=== PATIENT | female | born 1950 | race Caucasian/White ===

== ENCOUNTER 2020-05-15 06:51 | Day surgery (SDC) | payer MEDICARE, OTHER ==
[~2020-05-15] VITALS: Ht 157.5 cm; Wt 121.0 kg
[2020-05-15] VITALS (8 sets, daily range): BP systolic 169–197; BP diastolic 72–99; PULSE 52–66; TEMP 98.4
[2020-05-15] MEDS ORDERED: NORVASC 5MG5 MG/TAB PO (07:10)
[2020-05-15] MEDS ORDERED: DULCOLAX TAB5 MG PO (07:10)
[2020-05-15] MEDS ORDERED: ZYLOPRIM 100MG100 MG PO (07:10)
[2020-05-15] MEDS ORDERED: KLONOPIN 0.5MG0.5 MG PO (07:11)
[2020-05-15] MEDS ORDERED: NEURONTIN300 MG/CAP PO (07:12)
[2020-05-15] MEDS ORDERED: PROZAC 20MG20 MG PO (07:12)
[2020-05-15] MEDS ORDERED: GLUCOTROL10 MG PO (07:12)
[2020-05-15] MEDS ORDERED: GLUCOPHAGE500 MG/TAB PO (07:13)
[2020-05-15] MEDS ORDERED: HCTZ 25MG TAB25 MG PO (07:13)
[2020-05-15] MEDS ORDERED: TOPROL XL100 MG PO (07:14)
[2020-05-15] MEDS ORDERED: UNIVASC15 MG PO (07:14)
[2020-05-15] MEDS ORDERED: PRILOSEC 20MG20 MG PO (07:15)
[2020-05-15 07:48] LABS: HEMOGLOBIN 10.7 g/dl (12.5-16.0); MEAN CELL VOLUME 97 fl (80.0-100.0); MEAN CORPUSCULAR HEMOGLOBIN 30 pg (27.0-31.0); MEAN CORPUSCULAR HGB CONC 31 g/dl (33.0-37.0); MEAN PLATELET VOLUME 11.5 fl (7.4-10.4); PLATELET COUNT 71 K/mm3 (130-400); RED BLOOD COUNT 3.53 M/mm3 (4.10-5.30); REDCELL DISTRIBUTION WIDTH-CV 14.8 % (11.5-14.5)
[2020-05-15 07:54] LABS: HEMATOCRIT 34.3 % (37.0-47.0)
--- NOTE | 2020-05-15 09:30 | NUR ---
Report from Rachael DHILLON. Transferred from bone biopsy by cart. Dressing to left iliac CD&I.
[2020-05-15 09:36] LABS: EOSINOPHIL 4 % (0-4); LYMPHOCYTE 15 % (20.0-51.0); NEUTROPHILS 71 % (42.0-75.2); NUCLEATED RED BLOOD CELL 1 (0-6)
[2020-05-15 09:38] LABS: PLATELET ESTIMATE DECREASED (NORMAL)
[2020-05-15 09:39] LABS: HYPOCHROMIA 1+
--- NOTE | 2020-05-15 11:23 | NUR ---
INT discontinued intact. Discharge instructions given.
--- NOTE | 2020-05-15 11:35 | NUR ---
Transferred to private car by norbert
== END 2020-05-15 11:40 | disposition home or self-care (01) ==
LOC: SDCO 06:51
PROVIDERS: Internal Medicine
DX: D61.818 Other pancytopenia (principal); D50.9 Iron deficiency anemia, unspecified; D69.6 Thrombocytopenia, unspecified; D75.89 Other specified diseases of blood and blood-forming organs; R16.1 Splenomegaly, not elsewhere classified; D35.02 Benign neoplasm of left adrenal gland; C53.9 Malignant neoplasm of cervix uteri, unspecified; I99.8 Other disorder of circulatory system; I10 Essential (primary) hypertension; D53.9 Nutritional anemia, unspecified; E11.42 Type 2 diabetes mellitus with diabetic polyneuropathy; M10.9 Gout, unspecified; E03.9 Hypothyroidism, unspecified; G47.33 Obstructive sleep apnea (adult) (pediatric); G43.909 Migraine, unspecified, not intractable, without status migrainosus; K21.9 Gastro-esophageal reflux disease without esophagitis; Z88.2 Allergy status to sulfonamides; Z79.4 Long term (current) use of insulin; Z87.891 Personal history of nicotine dependence; Z79.899 Other long term (current) drug therapy
CPT/HCPCS: J2250; J2704

== ENCOUNTER 2023-05-07 23:43 | Inpatient (IN) | payer MEDICARE ==
[~2023-05-07] VITALS: Ht 154.9 cm; Wt 96.6 kg
[~2023-05-07 23:43] MED LIST: APRESOLINE50 MG PO; CATAPRES 0.1MG0.1 MG PO; COLACE 100100 MG/CAP PO; COZAAR 25MG25 MG/TAB PO; COZAAR 50MG50 MG/TAB PO; DULCOLAX TAB5 MG PO; ESTRACE0.5 MG PO; FERROUS SU325 MG/TAB PO; GLUCOPHAGE500 MG/TAB PO; GLUCOTROL10 MG PO; HCTZ 25MG TAB25 MG PO; IMDUR 60MG60 MG/TAB PO; KLONOPIN 0.5MG0.5 MG PO; LASIX 40MG TABL40 MG PO; LEVEMIR100 U/ML SQ; LIPITOR20 MG PO; MULTI VITAMINS1 TAB PO; NEURONTIN300 MG/CAP PO; NORVASC 5MG5 MG/TAB PO; NORVASC2.5 MG PO; NOVOLOG FLEX100 U/ML SQ; PRILOSEC 20MG20 MG PO; PROTONIX 40MG T40 MG PO; PROZAC 20MG20 MG PO; TOPROL XL100 MG PO; UNIVASC15 MG PO; VITAMIN B COMPL1 SGL PO; ZYLOPRIM 100MG100 MG PO
[2023-05-08] VITALS (19 sets, daily range): BP systolic 148–179; BP diastolic 67–95; PULSE 59–60; TEMP 97.5–98.7
[2023-05-08] MEDS ORDERED: NORVASC 5MG5 MG/TAB PO (03:28)
--- NOTE | 2023-05-08 05:00 | NUR ---
PT ARRIVED TO THE MEDICAL FLOOR AROUND 0030HRS TO ROOM 318. PT A&O X 4; VSS WITH ELEVATED B/P (179/76) & BS (157); O2 2L VIA NC. PT DENIED GENERAL PAIN, CHEST PAIN, PALPITATIONS, SOB, N,V,D OR DIZZINESS. ADMISSIONS ASSESSMENT AND MED REC COMPLETE. PT ORIENTED TO ROOM AND HOSPITAL POLICY. THE CONTENTS OF PT'S WALLET INVENTORIED AND GIVEN TO PAIRER TO BE PLACED IN VAULT. PT'S BLOOD PRESSURE AND BLOOD GLUCOSE IMPROVED BY END OF SHIFT (B/P 159/71) AND (BS 141). FALL PRECAUTIONS IN PLACE. RESTRICTION BAND ON LEFT ARM. BED ALARM ON. CALL LIGHT WITHIN REACH.
[2023-05-08 09:41] LABS: BASO % 0.3 % (0.0-2.0); EOS # 0.2 K/mm3 (0.0-0.7); EOS % 5.1 % (0.0-4.0); GRAN # 2.7 K/mm3 (1.4-6.5); GRAN % 75.8 % (42.2-75.2); LYMPH # 0.3 K/mm3 (1.2-3.4); LYMPH % 7.4 % (20.0-51.0); MEAN CELL VOLUME 96 fl (80.0-100.0); MEAN CORPUSCULAR HGB CONC 32 g/dl (33.0-37.0); MEAN PLATELET VOLUME 11.5 fl (7.4-10.4); MONO # 0.4 K/mm3 (0.1-0.6); MONO % 10.8 % (1.7-9.3); PLATELET COUNT 52 K/mm3 (130-400); RED BLOOD COUNT 2.56 M/mm3 (4.10-5.30); REDCELL DISTRIBUTION WIDTH-CV 13.7 % (11.5-14.5)
[2023-05-08 09:43] LABS: HEMATOCRIT 24.6 % (37.0-47.0); HEMOGLOBIN 7.9 g/dl (12.5-16.0); MEAN CORPUSCULAR HEMOGLOBIN 31 pg (27-31)
[2023-05-08 10:07] LABS: ALBUMIN 3.1 gm/dL (3.4-4.8); BILIRUBIN,TOTAL 0.5 mg/dL (0.2-1.2); CALCIUM 8.6 mg/dL (8.4-10.2); CREATININE, serum 4.89 mg/dL (0.57-1.11); POTASSIUM 4.1 mmol/L (3.5-4.5); TOTAL PROTEIN 5.7 gm/dL (6.2-8.1)
[2023-05-08 10:11] LABS: INR 1.2 (0.8-3.0); PROTHROMBIN TIME 13.7 SECONDS (9.7-12.8)
--- NOTE | 2023-05-08 10:24 | NUR ---
Initial visit; Patient using telephone, Elevator Repairer Helper left card for "Spiritual Care" available to her, on her bed-tray. She smiled and thanked Elevator Repairer Helper then resumed her call.
--- NOTE | 2023-05-08 12:52 | NUR ---
SEE MERGE FOR ALL INTERVENTIONS, MEDICATIONS AND VITAL SIGNS.
[2023-05-08 23:00] LABS: HEPATITIS B SURFACE ANTIBODY <2.0 (()); HEPATITIS B SURFACE ANTIGEN Negative (Negative); HEPATITIS C VIRUS ANTIBODY Negative (Negative)
[2023-05-09] VITALS (11 sets, daily range): BP systolic 167–201; BP diastolic 70–109; PULSE 58–78; TEMP 97.7–98.4
[2023-05-09 00:34] LABS: IRON,SERUM 402 ug/dL (50-175)
--- NOTE | 2023-05-09 05:25 | NUR ---
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 PT COMPLAINED OF NAUSEA AND VOMITING AFTER ATTEMPING DINNER. PT GIVEN ZOFRAN. PT FELT BETTER AFTER THE ZOFRAN. PT ALSO HYPERTENSIVE THIS SHIFT. PT GIVEN SCHEDULED AND PRN B/P MEDICATIONS PER ORDERS. PT ASYMPTOMATIC. WILL CONTINUE TO TREAT HTN ORDERED AND MONITOR. PT DENIED GENERAL (ALTHOUGH SHE DID MENTION SOME DISCOMFORT AT HER DIALYSIS CATHTER SITE. WHEN ASKED IF SHE NEEDED SOMETHING FOR PAIN, PT STATED, "NO, IT'S NOT PAINFUL, JUST A BIT SORE.". PT DENIED CHEST PAIN, PALPITATIONS, SOB, DIARRHEA OR DIZZINESS. PT HAD SOME EXCESS BLEEDING AFTER EACH LAB DRAWN. COBAN USED TO HELP STOP THE BLEEDING. CALL LIGHT WITHIN REACH.
[2023-05-09 06:02] LABS: BASO % 0.3 % (0.0-2.0); EOS # 0.1 K/mm3 (0.0-0.7); EOS % 2.9 % (0.0-4.0); GRAN # 2.9 K/mm3 (1.4-6.5); GRAN % 76.4 % (42.2-75.2); LYMPH # 0.3 K/mm3 (1.2-3.4); LYMPH % 7.8 % (20.0-51.0); MEAN CELL VOLUME 98 fl (80.0-100.0); MEAN CORPUSCULAR HGB CONC 32 g/dl (33.0-37.0); MEAN PLATELET VOLUME 11.8 fl (7.4-10.4); MONO # 0.5 K/mm3 (0.1-0.6); MONO % 12.3 % (1.7-9.3); PLATELET COUNT 50 K/mm3 (130-400); RED BLOOD COUNT 2.37 M/mm3 (4.10-5.30); REDCELL DISTRIBUTION WIDTH-CV 13.5 % (11.5-14.5)
[2023-05-09 06:06] LABS: HEMATOCRIT 23.2 % (37.0-47.0); HEMOGLOBIN 7.5 g/dl (12.5-16.0); MEAN CORPUSCULAR HEMOGLOBIN 32 pg (27-31)
--- NOTE | 2023-05-09 08:25 | NUR ---
PATIENT AWAKE AND ALERT, SITTING UP IN BED. PATIENTS CALL [facility] WITHIN REACH, BED ALARM ON. PATIENT DENIES ANY FURTHER NEEDS OR COMPLAINTS.
--- NOTE | 2023-05-09 08:30 | NUR ---
INOFRMED DIALYSIS NURSE AROUND O730 THAT PATIENTS BP WAS 183/84 AND THAT THIS RN WILL RECHECK IN 1 HOUR TO SEE WHAT IT IS WHEN PRN IS AVAIABLE HAND SIZER MADE AWARE THAT PATIENTS BP CURRENTLY 167/70 AT 0830.
[2023-05-09 09:11] LABS: ALBUMIN 2.9 gm/dL (3.4-4.8); CALCIUM 8.3 mg/dL (8.4-10.2); CREATININE, serum 4.09 mg/dL (0.57-1.11); PHOSPHOROUS 4.4 mg/dL (2.3-4.7); POTASSIUM 3.9 mmol/L (3.5-4.5)
--- NOTE | 2023-05-09 11:06 | NUR ---
Initial visit: Content Director stopped by room on rounds. Pt was resting and content. Pt has no needs right now. Content Director will follow up as needed.
--- NOTE | 2023-05-09 11:12 | NUR ---
Executive Services Administrator met with Patient and sister, Tasia, at bedside to conduct Care Managment ASsessment and discuss discharge planning. Patient lives with her in [place], [place] and is established with PCP Dr. Zuleta. Patient is covered by [facility] for insurance and requests Rx through [facility] for discharge. Patient endorses the use of O2 prior to admission with servicing provider medical equipment of [place]. Patient endorses the use of a FWW and reports independency with [facility] at home. Patient reports that she is able to go to tenriism but is otherwise not in the community. Patietn is established with meals on wheels.
--- NOTE | 2023-05-09 15:55 | NUR ---
CALL RECIEVED FROM ACCOUNTS RECEIVABLE SUPERVISOR. PATIENTS SYSTOLIC BP IS 212. PRN MEDICATIONS GIVEN.
--- NOTE | 2023-05-09 17:50 | NUR ---
PATIENT IS BACK FROM DIALYSIS. BED ALARM ON, CALL LIGHT WITHIN REACH.
--- NOTE | 2023-05-09 19:17 | NUR ---
INOFRMED NIGHT RN OF PATIENTS ELEVATED BP AND VOICEMAIL LEFT FOR BEDROS. HOWEVER NEPHRO PAYROLL MASTER JIMBO ARRIVED TO UNIT. INFORMED NEPHRO PAYROLL MASTER OF PATIENTS BP. NIGHT RN WILL FULLFILL ANY NEW ORDERS PLACED.
[2023-05-10] VITALS (15 sets, daily range): BP systolic 162–207; BP diastolic 70–99; PULSE 60–66; TEMP 97.7–98.2
--- NOTE | 2023-05-10 01:50 | NUR ---
Shift assessment completed. Pt is alert and oriented. She has been having persistent high blood pressure readings. A one time dose of apresoline was ordered at 1900 by Ivania Silvestre APRN. This was administered as ordered. Bumex drip initiated and is running at 5 ml/hr. She stated that she is having mild pain in the left side of her back and flank (3-4/10). Around 0030 she called crying, stating that the pain in her back has worsened. I placed a warm blanket on the area and administered PRN tylenol as ordered. She states that she is now comfortable. Call light within reach and fall precautions in place.
[2023-05-10 06:47] LABS: BASO % 0.3 % (0.0-2.0); EOS # 0.2 K/mm3 (0.0-0.7); EOS % 4.8 % (0.0-4.0); GRAN # 2.9 K/mm3 (1.4-6.5); GRAN % 73.2 % (42.2-75.2); LYMPH # 0.3 K/mm3 (1.2-3.4); LYMPH % 7.3 % (20.0-51.0); MEAN CELL VOLUME 99 fl (80.0-100.0); MEAN CORPUSCULAR HGB CONC 32 g/dl (33.0-37.0); MEAN PLATELET VOLUME 10.9 fl (7.4-10.4); MONO # 0.6 K/mm3 (0.1-0.6); MONO % 13.9 % (1.7-9.3); RED BLOOD COUNT 2.47 M/mm3 (4.10-5.30); REDCELL DISTRIBUTION WIDTH-CV 13.5 % (11.5-14.5)
[2023-05-10 06:50] LABS: HEMATOCRIT 24.5 % (37.0-47.0); HEMOGLOBIN 7.8 g/dl (12.5-16.0); MEAN CORPUSCULAR HEMOGLOBIN 32 pg (27-31)
[2023-05-10 06:51] LABS: PLATELET COUNT 49 K/mm3 (130-400)
[2023-05-10 07:02] LABS: ALBUMIN 3.1 gm/dL (3.4-4.8); CALCIUM 8.6 mg/dL (8.4-10.2); CREATININE, serum 3.02 mg/dL (0.57-1.11); PHOSPHOROUS 2.9 mg/dL (2.3-4.7); POTASSIUM 3.6 mmol/L (3.5-4.5)
--- NOTE | 2023-05-10 09:09 | NUR ---
Patient is resting in bed watching TV, alert and oriented x 4, VSS but HTN, PRN as allowed. Getting Bumex gtt AT 5ML/hr. Telemetry in place, NSR, receiving 2 L o2 NC. Assessment completed, meds provided, no further needs at this time. Call light within reach.
--- NOTE | 2023-05-10 16:22 | NUR ---
Reported by VENEER PRESS OPERATOR pt BP 207/99, hydralazine provided. Call placed to Dr Otto, verbal order to restart amlodipine as taken at home and one dose now. Order placed. Continue monitoring.
--- NOTE | 2023-05-10 18:12 | NUR ---
Pt's BP still high 196 SBP, call placed to Dr Otto, ordered to continue treating medically and provide PRN as needed, states no need to report BP levels. Report will be given to night RN.
--- NOTE | 2023-05-10 21:05 | NUR ---
Called and notified Dr. Otto of the ABD CT results of an increased size of the AAA to a 4.1 x 3.9. Notified him of her current BP reading of 189/76. She currently has a Bumex drip running and has recieved her PM Cozaar 50 mg. He gave verbal orders for clonidine 0.1 mg PO given NOW and then BID. Additionally, he ordered Coreg 6.25 mg PO given NOW and then BID. He ordered telemetry to be initiated. She is already on telemetry monitoring. Orders were read back to him and initiated in pt's chart.
[2023-05-11] VITALS (16 sets, daily range): BP systolic 124–183; BP diastolic 66–88; PULSE 59–60; TEMP 97.5–98.2
[2023-05-11 07:35] LABS: BASO % 0.3 % (0.0-2.0); EOS # 0.3 K/mm3 (0.0-0.7); EOS % 6.4 % (0.0-4.0); GRAN # 2.7 K/mm3 (1.4-6.5); GRAN % 69.7 % (42.2-75.2); LYMPH # 0.3 K/mm3 (1.2-3.4); LYMPH % 8.2 % (20.0-51.0); MEAN CELL VOLUME 99 fl (80.0-100.0); MEAN CORPUSCULAR HGB CONC 31 g/dl (33.0-37.0); MEAN PLATELET VOLUME 11.5 fl (7.4-10.4); MONO # 0.6 K/mm3 (0.1-0.6); MONO % 14.9 % (1.7-9.3); PLATELET COUNT 52 K/mm3 (130-400); RED BLOOD COUNT 2.46 M/mm3 (4.10-5.30); REDCELL DISTRIBUTION WIDTH-CV 13.4 % (11.5-14.5)
[2023-05-11 07:36] LABS: HEMATOCRIT 24.3 % (37.0-47.0); HEMOGLOBIN 7.6 g/dl (12.5-16.0); MEAN CORPUSCULAR HEMOGLOBIN 31 pg (27-31)
[2023-05-11 07:47] LABS: ALBUMIN 2.9 gm/dL (3.4-4.8); CALCIUM 8.5 mg/dL (8.4-10.2); CREATININE, serum 3.86 mg/dL (0.57-1.11); PHOSPHOROUS 3.2 mg/dL (2.3-4.7); POTASSIUM 3.5 mmol/L (3.5-4.5)
--- NOTE | 2023-05-11 09:14 | NUR ---
Patient is resting in bed, alert and oriented x 4, continues with HTN, PRN provided. States pain in her left upper flank 1/. Refused pain med. Getting bumex gtt 5ml/hr. TeLEMETRY in place, NSR. Assessment completed, meds provided. No further needs at this time. Call light within reach.
--- NOTE | 2023-05-11 10:00 | NUR ---
Received call from pharmacy asking about an ordered dose of Ancef placed 05/08/23 at 1130. According to EMAR dose was not provided to patient.
--- NOTE | 2023-05-11 11:39 | NUR ---
Agriculture Science Teacher rounds: Patient was listening to an online mu-ism service on her phone. No Agriculture Science Teacher visit attempted so as not to disturb her.
--- NOTE | 2023-05-11 18:24 | NUR ---
Patient continues with High BP, SBP 150-170'S. Asked for pain meds once. No other needs at this time. Report will be given to night RN.
[2023-05-12] VITALS (11 sets, daily range): BP systolic 115–181; BP diastolic 58–84; PULSE 59–60; TEMP 98.1–98.6
--- NOTE | 2023-05-12 05:10 | NUR ---
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 PT HYPERTENSIVE MOST OF THE SHIFT. PT GIVEN APRESOLINE SEVERAL TIMES DURING THE SHIFT. THE APRESOLINE HELPED A LITTLE. THE ONLY TIME PT'S B/P WAS BELOW 140 SYSTOLIC WAS WHEN THE APRESOLINE WAS GIVEN WITH HER NIGHT TIME B/P MEDS. PT COMPLAINED OF ITCHINESS. PT GIVEN BENADRYL PER REQUEST. THE BENADRYL WAS EFFECTIVE PER PT. PT DENIED CHEST PAIN, PALPITATIONS, HEADACHE, SOB, N,V,D OR DIZZINESS. CALL LIGHT WITHIN REACH.
[2023-05-12 06:28] LABS: BASO % 0.3 % (0.0-2.0); EOS # 0.3 K/mm3 (0.0-0.7); GRAN # 2.5 K/mm3 (1.4-6.5); GRAN % 66.7 % (42.2-75.2); LYMPH # 0.4 K/mm3 (1.2-3.4); LYMPH % 10.4 % (20.0-51.0); MEAN CELL VOLUME 99 fl (80.0-100.0); MEAN CORPUSCULAR HGB CONC 32 g/dl (33.0-37.0); MEAN PLATELET VOLUME 11.9 fl (7.4-10.4); MONO # 0.5 K/mm3 (0.1-0.6); MONO % 13.8 % (1.7-9.3); PLATELET COUNT 51 K/mm3 (130-400); RED BLOOD COUNT 2.45 M/mm3 (4.10-5.30); REDCELL DISTRIBUTION WIDTH-CV 13.4 % (11.5-14.5)
[2023-05-12 06:29] LABS: HEMATOCRIT 24.2 % (37.0-47.0); HEMOGLOBIN 7.7 g/dl (12.5-16.0); MEAN CORPUSCULAR HEMOGLOBIN 31 pg (27-31)
[2023-05-12 06:39] LABS: ALBUMIN 2.9 gm/dL (3.4-4.8); CALCIUM 8.5 mg/dL (8.4-10.2); CREATININE, serum 4.84 mg/dL (0.57-1.11); PHOSPHOROUS 3.6 mg/dL (2.3-4.7); POTASSIUM 3.6 mmol/L (3.5-4.5)
--- NOTE | 2023-05-12 07:50 | NUR ---
PATIENT TAKEN TO DIALYSIS
--- NOTE | 2023-05-12 09:44 | NUR ---
COLORING ROOM MAN CALLED, DR DALE WOULD LIKE PATIENTS BUMEX DRIP DISCONTINUED. THIS RN WENT TO DIALYSIS. BUMEX DRIP DISCONTINUED, PATIENT IS NOW SALINE LOCKED. PATIENT STILL ON DIALYSIS CURRENTLY.
--- NOTE | 2023-05-12 10:02 | NUR ---
PATIENTS BLOOD PRESSURE IN DIALYSIS STABLE.
[2023-05-13 00:09] VITALS: BP_SYST 162
[2023-05-13 03:17] VITALS: BP 149/66; PULSE 60; TEMP 97.7
[2023-05-13 05:14] VITALS: BP_SYST 149
[2023-05-13 06:43] LABS: CALCIUM 8.5 mg/dL (8.4-10.2); CREATININE, serum 3.87 mg/dL (0.57-1.11); POTASSIUM 3.8 mmol/L (3.5-4.5)
--- NOTE | 2023-05-13 08:32 | NUR ---
Patient sleeping, easily arousable. Alert and oriented x 4, expecting to go home today. States no pain. SBP 140'S, getting 2 L O2 NC. Assessment completed, meds provided. No further needs at this time. Call light within [place].
[2023-05-13 08:33] VITALS: BP 147/73; PULSE 60; TEMP 97.8
[2023-05-13 08:35] VITALS: BP_SYST 147
--- NOTE | 2023-05-13 10:33 | NUR ---
Security brought pt's wallet and it was given to pt checking each one of the listed ITEMs, pt agreed with items listed and in wallet.
[2023-05-13 11:26] VITALS: BP 135/61; PULSE 59; TEMP 98.1
--- NOTE | 2023-05-13 12:24 | NUR ---
SW Disposal Man visited patient to review IM form. Patient was awake and cognitive when presented information. Patient verbalized understanding and signed IM form. SW Disposal Man dated and timed form while patient observed. Sign form placed in patient file.
--- NOTE | 2023-05-13 13:41 | NUR ---
Patient and son were provided with discharge information. All questions answered. IV access and telemetry were discontinued. PT has her own portable O2. Patient saturating 92-93% at RA right now. Pt will be taken by wheelchair to the entrance of the hospital.
[2023-06-05] MEDS ORDERED: NORCO 325 MG-51 TAB PO (10:33)
== END 2023-05-13 14:00 | disposition home or self-care (01) | DRG 291 ==
LOC: MEDICAL 23:43
PROVIDERS: Registered Nurse; ADMIT Internal Medicine Nephrology
PROC: 0JH63XZ Insertion of Tunneled Vascular Access Device into Chest Subcutaneous Tissue and Fascia, Percutaneous Approach (ICD-10-PCS; principal; 2023-05-08)
PROC: 02H633Z Insertion of Infusion Device into Right Atrium, Percutaneous Approach (ICD-10-PCS; 2023-05-08)
PROC: 5A1D70Z Performance of Urinary Filtration, Intermittent, Less than 6 Hours Per Day (ICD-10-PCS; 2023-05-08)
DX: I13.2 Hypertensive heart and chronic kidney disease with heart failure and with stage 5 chronic kidney disease, or end stage renal disease (principal); N18.6 End stage renal disease; I50.32 Chronic diastolic (congestive) heart failure; E11.22 Type 2 diabetes mellitus with diabetic chronic kidney disease; E87.70 Fluid overload, unspecified; E78.5 Hyperlipidemia, unspecified; E11.51 Type 2 diabetes mellitus with diabetic peripheral angiopathy without gangrene; D63.1 Anemia in chronic kidney disease; F32.A Depression, unspecified; F41.9 Anxiety disorder, unspecified; D69.6 Thrombocytopenia, unspecified; D50.9 Iron deficiency anemia, unspecified; I16.0 Hypertensive urgency; M54.9 Dorsalgia, unspecified; R16.1 Splenomegaly, not elsewhere classified; I77.811 Abdominal aortic ectasia; Z99.2 Dependence on renal dialysis; Z88.5 Allergy status to narcotic agent; Z88.2 Allergy status to sulfonamides; Z91.040 Latex allergy status; Z79.4 Long term (current) use of insulin; Z79.899 Other long term (current) drug therapy; Z87.891 Personal history of nicotine dependence; Z87.19 Personal history of other diseases of the digestive system
CPT/HCPCS: C1751; J0690; J1644; J1756; J1815; J1940; J2250; J2405; J3010; J7050; Q5105; Q5106